=== PATIENT | female | born 1955 | race Caucasian/White ===

== ENCOUNTER 2017-01-29 12:53 | Emergency (ER) | payer BC ==
[2017-01-29] MEDS ORDERED: ALBUTEROL SO4 2.5/IPRATROPIUM 0.5 INH SOL 3 ML VIAL.NEB. NEB ONE ×2 (13:12→13:23)
[2017-01-29] MEDS ORDERED: FAMOTIDINE 20 MG TABLET PO ONE (13:12)
[2017-01-29] MEDS ORDERED: MAG HYDROX/AL HYDROX/SIMETH 355 ML ORAL.SUSP PO ONE (13:12)
[2017-01-29] MEDS ORDERED: LIDOCAINE VISCOUS 2% ORAL/TOP 20 ML UNIT-DOSE CUP MM ONE (13:13)
[2017-01-29] MEDS ORDERED: KETOROLAC TROMETHAMINE 30 MG/1 ML VIAL IM ONE (13:13)
[2017-01-29 13:14] VITALS: BP 113/77; PULSE 100; TEMP 98.9; BMI 31.5
[2017-01-29] MEDS ORDERED: PSEUDOEPHEDRINE HCL 30 MG TABLET PO ONE (13:15)
--- NOTE | 2017-01-29 13:21 | PDOC ---
History of Present Illness - General Chief Complaint: Headache Stated Complaint: HEADACHE AND COUGH History Source: Patient Exam Limitations: No Limitations - History of Present Illness Initial Comments: 01/29/17 13:15 7-year-old female with a history of reflux disease here today complaining of cough congestion facial pain and headache. Patient states she's had an upset stomach with burning epigastric pain since she ate some bad food 1 week ago. Denies any shortness of breath has had a dry nonproductive cough since yesterday in the past has been treated for recurrent bronchitis and has been followed by Dr. Lamar pulmonology has use inhalers in the past. No fevers chills mild nasal congestion. Headache is frontal and region and wraps around laterally. Took Ecotrin earlier today with minimal relief no known sick contacts no fevers chills no recent travel denies any urinary symptoms did have vomiting a few days ago but none today no other moderating factors. Takes Protonix daily Past History - Past Medical History Allergies/Adverse Reactions: Allergies Allergy/AdvReac Type Severity Reaction Status Date / Time No Known Allergies Allergy Verified 01/29/17 12:54 Home Medications: Ambulatory Orders Levothyroxine [Synthroid -] 88 mcg PO DAILY 12/07/13 Albuterol Sulfate Inhaler - [Ventolin HFA Inhaler -] 2 puff IH Q4H PRN #1 inhaler 01/29/17 Fluticasone Prop 0.05% Nasal [Flonase -] 1 spray NS DAILY #1 bot 01/29/17 Omeprazole Magnesium [Prilosec] 20 mg PO BID 01/29/17 Pseudoephedrine HCl 30 mg PO QID #15 tablet 01/29/17 COPD: No GI Disorders: Yes (LORD'S ESOPHAGUS) Thyroid Disease: Yes Other medical history: BRONCHITIS - Suicide/Smoking/Psychosocial Hx Smoking History: Never smoked Have you smoked in the past 12 months: No Information on smoking cessation initiated: No Hx Alcohol Use: No Drug/Substance Use Hx: No Substance Use Type: None Review of Systems - Review of Systems Constitutional: No: Chills, Diaphoresis, Fever HEENTM: No: Blurred Vision Respiratory: Yes: Cough, Wheezing. No: Orthopnea, Shortness of Breath, Productive cough Cardiac (ROS): No: Chest Pain ABD/GI: Yes: Nausea, Vomiting, Indigestion : No: Burning, Dysuria Musculoskeletal: No: Back Pain Integumentary: No: Bruising Neurological: Yes: Headache. No: Numbness, Paresthesia All Other Systems: Reviewed and Negative *Physical Exam - Vital Signs Last Vital Signs Temp Pulse Resp BP Pulse Ox 98.9 F 100 H 20 113/77 96 01/29/17 12:54 01/29/17 12:54 01/29/17 12:54 01/29/17 12:54 01/29/17 12:54 - Physical Exam General Appearance: Yes: Appropriately Dressed HEENT: positive: Normal ENT Inspection, Nasal Congestion, Rhinorrhea, Sinus Tenderness, Other (Bilateral nasal turbinate enlargement posterior pharynx cobblestoning) Neck: positive: Trachea midline Respiratory/Chest: positive: Normal Breath Sounds, Wheezing (end expiratory wheeze at base with cough). negative: Chest Tender Cardiovascular: positive: Regular Rhythm, Regular Rate, S1, S2 Gastrointestinal/Abdominal: positive: Normal Bowel Sounds, Flat, Soft. negative : Tender Musculoskeletal: positive: Normal Inspection. negative: CVA Tenderness Extremity: positive: Normal Capillary Refill, Normal Inspection, Normal Range of Motion Integumentary: positive: Normal Color, Dry, Warm Neurologic: positive: Fully Oriented, Alert, Normal Mood/Affect Heart Score/ECG Review #1 General ECG Interpretation: Sinus Rhythm, Normal Rate (97), Normal Intervals, No acute ischemic changes ED Treatment Course - RADIOLOGY Radiology Studies Ordered: Category Date Time Status CHEST PA & LAT [RAD] Stat Radiology 01/29/17 13:03 Ordered Medical Decision Making - Medical Decision Making 01/29/17 13:19 61-year-old female history of GERD here with likely viral URI and mild bronchospasm. Plan treat sinusitis with decongestants and Flonase. We will try a DuoNeb Daquan dilator to help with spastic cough chest x-ray to rule out pneumonia afebrile here in the emergency room sats are good we'll also treat patient's reflux symptoms with Pepcid Maalox and viscous lidocaine reassess for symptomatic improvement likely discharge home with outpatient follow-up PCP *DC/Admit/Observation/Transfer Diagnosis at time of Disposition: Viral syndrome, Sinusitis, Bronchitis - Discharge Dispostion Disposition: HOME Condition at time of disposition: Improved - Prescriptions Prescriptions: Albuterol Sulfate Inhaler - [Ventolin HFA Inhaler -] 2 puff IH Q4H PRN #1 inhaler PRN Reason: Cough Fluticasone Prop 0.05% Nasal [Flonase -] 1 spray NS DAILY #1 bot Pseudoephedrine HCl 30 mg PO QID #15 tablet - Referrals - Patient Instructions Printed Discharge Instructions: DI for Acute Bronchitis Additional Instructions: you should follow-up with your primary doctor next week. Use Flonase nasal spray 1 spray each nostril daily to help with nasal congestion and facial pressure. you can also use pseudoephedrine 30 mg every 6 hours as needed for nasal congestion. Use albuterol 2 puffs inhaled every 4 hours as needed for persistent cough or wheezing take Tylenol 500 mg every 6 hours as needed for headache or pain. Return for any worsening symptoms vomiting high fevers shortness of breath or any concerns - Post Discharge Activity
[2017-01-29] MEDS ORDERED: PSEUDOEPHEDRINE HCL 30 MG TABLET ONE (13:23)
[2017-01-29] MEDS ORDERED: MAG HYDROX/AL HYDROX/SIMETH 30 ML UNIT-DOSE CUP ONE (13:24)
[2017-01-29] MEDS ORDERED: FAMOTIDINE 20 MG TABLET ONE (13:24)
[2017-01-29] MEDS ORDERED: KETOROLAC TROMETHAMINE 30 MG/1 ML VIAL ONE (13:24)
[2017-01-29] MEDS ORDERED: LIDOCAINE VISCOUS 2% ORAL/TOP 20 ML UNIT-DOSE CUP ONE (13:25)
--- NOTE | 2017-01-30 15:18 | EKG ---
Test Reason : Blood Pressure : / mmHG Vent. Rate : 097 BPM Atrial Rate : 097 BPM P-R Int : 174 ms QRS Dur : 078 ms QT Int : 370 ms P-R-T Axes : 056 010 066 degrees QTc Int : 469 ms NORMAL SINUS RHYTHM POOR R WAVE PROGRESSION NONSPECIFIC T WAVE ABNORMALITY ABNORMAL ECG WHEN COMPARED WITH ECG OF 31-JUL-1999 09:30, Loss of R waves in V4 and decreased R wave in V5 Confirmed by CHULA GALICIA MD ([id number]) on 01/30/2017 3:18:14 PM Referred By: BENITO Confirmed By:CHULA GALICIA MD
== END 2017-01-29 15:00 | disposition home or self-care (01) ==
LOC: FER 12:53
PROC: 3E0F7GC Introduction of Other Therapeutic Substance into Respiratory Tract, Via Natural or Artificial Opening (ICD-10-PCS; principal; 2017-01-29)
PROC: 3E0333Z Introduction of Anti-inflammatory into Peripheral Vein, Percutaneous Approach (ICD-10-PCS; 2017-01-29)
DX: J40 Bronchitis, not specified as acute or chronic (principal); J01.90 Acute sinusitis, unspecified; B34.9 Viral infection, unspecified
CPT/HCPCS: 71020-TC; 93005; 99282-25

== ENCOUNTER 2018-08-22 12:18 | Emergency (ER) | payer BC, OTHER ==
[2018-08-22 12:27] VITALS: TEMP 99.1; BMI 32.8
[2018-08-22] MEDS ORDERED: ASPIRIN 325 MG TABLET PO ONE (13:14)
[2018-08-22] MEDS ORDERED: ASPIRIN 325 MG TABLET ONE (13:23)
[2018-08-22 13:40] LABS: BASO % 0.6 % (0-2.0); EOS % 2.1 % (0-4.5); HEMATOCRIT 40.1 % (32.4-45.2); HEMOGLOBIN 13.5 GM/dL (10.7-15.3); LYMPH % 27.3 % (8-40); MCH 29.7 pg (25.7-33.7); MCHC 33.8 g/dl (32.0-36.0); MEAN PLT VOLUME 9.1 fl (7.5-11.1); MONO % 9.1 % (3.8-10.2); NEUT % 60.9 % (42.8-82.8); PLATELET COUNT 212 K/MM3 (134-434); RBC 4.55 M/mm3 (3.60-5.2); RDW 13.7 % (11.6-15.6); WHITE BLOOD COUNT 4.2 K/mm3 (4.0-10.0)
--- NOTE | 2018-08-22 13:46 | PDOC ---
Documentation entered by Aaron Nuñez SCRIBE, acting as scribe for Hector Carlson MD. Hector Carlson MD: This documentation has been prepared by the Savannah pedraza Elijah, SCRIBE, under my direction and personally reviewed by me in its entirety. I confirm that the documentation accurately reflects all work, treatment, procedures, and medical decision making performed by me. History of Present Illness - General Chief Complaint: Chest Pain Stated Complaint: CHEST PAIN Time Seen by Provider: 08/22/18 12:45 - History of Present Illness Initial Comments: 08/22/18 13:34 62 F with GERD, presenting to ED with intermittent chest pain since this morning. Pt reports 3-4 episodes of sharp midsternal chest pain. She states that the pain lasted only a few seconds at a time. No radiation of pain anywhere. Pain is not exertional, not pleuritic. NO associated SOB/N/V. No abdominal pain. No cough. No fevers. Past History - Past Medical History Allergies/Adverse Reactions: Allergies Allergy/AdvReac Type Severity Reaction Status Date / Time suture Allergy Verified 08/22/18 12:24 Home Medications: Ambulatory Orders Levothyroxine [Synthroid -] 88 mcg PO DAILY 12/07/13 COPD: No GI Disorders: Yes (LORD'S ESOPHAGUS) Thyroid Disease: Yes - Suicide/Smoking/Psychosocial Hx Smoking History: Never smoked Have you smoked in the past 12 months: No Hx Alcohol Use: No Drug/Substance Use Hx: No Substance Use Type: None Review of Systems - Review of Systems Comments:: 08/22/18 13:39 "GENERAL/CONSTITUTIONAL: No fever or chills. No weakness. HEAD, EYES, EARS, NOSE AND THROAT: No change in vision. No ear pain or discharge. No sore throat. CARDIOVASCULAR: + chest pain, no shortness of breath, no loss of consciousness RESPIRATORY: No cough, wheezing, or hemoptysis. GASTROINTESTINAL: No nausea, vomiting, diarrhea or constipation. GENITOURINARY: No dysuria, frequency, or change in urination. MUSCULOSKELETAL: No joint or muscle swelling or pain. No neck or back pain. SKIN: No rash NEUROLOGIC: No vertigo, no change in strength/sensation. ENDOCRINE: No increased thirst. No abnormal weight change. HEMATOLOGIC/LYMPHATIC: No anemia, easy bleeding, or history of blood clots. ALLERGIC/IMMUNOLOGIC: No hives or skin allergy. *Physical Exam - Vital Signs Last Vital Signs Temp Pulse Resp BP Pulse Ox 99.1 F 111 H 18 127/91 98 08/22/18 12:26 08/22/18 12:26 08/22/18 12:26 08/22/18 12:26 08/22/18 12:26 - Physical Exam Comments: 08/22/18 13:39 "GENERAL: Awake, alert, and fully oriented, in no acute distress. HEAD: No signs of trauma EYES: PERRLA, EOMI, sclera anicteric, conjunctiva clear ENT: Auricles normal inspection, hearing grossly normal, nares patent, oropharynx clear without exudates. Moist mucosa NECK: Nontender, no stepoffs, Normal ROM, supple, no lymphadenopathy, JVD, or masses LUNGS: Breath sounds equal, clear to auscultation bilaterally. No wheezes, and no crackles HEART: Regular rate and rhythm, normal S1 and S2, no murmurs, rubs or gallops ABDOMEN: Soft, nontender, normoactive bowel sounds. No guarding, no rebound. No masses EXTREMITIES: Normal range of motion, no edema. No clubbing or cyanosis. No cords, erythema, or tenderness NEUROLOGICAL: Cranial nerves II through XII intact. 5/5 strength and sensation in all extremities, Normal speech, normal gait, normal cerebellar function SKIN: Warm, Dry, normal turgor, no rashes or lesions noted. Heart Score/ECG Review - History History: Slightly suspicious - Electrocardiogram EKG: Non specific repolarization disturbance - Age Age: 45-65 - Risk Factors Risk Factors Heart Score: Yes Positive family hx of cardiac disease Based on the list above the patient has:: 1-2 risk factors - Troponin Troponin: </= normal limit - Score Heart Score - Total: 3 - ECG Impressions Comment:: 08/22/18 13:42 NSR, no MAUREEN/STDs, TWI in I and aVL, LBBB not seen on prior EKG ED Treatment Course - LABORATORY CBC & Chemistry Diagram: 08/22/18 13:19 08/22/18 13:19 - RADIOLOGY Radiology Studies Ordered: Category Date Time Status CHEST X-RAY PORTABLE* [RAD] Stat Radiology 08/22/18 13:14 Ordered - Medications Given in the ED: ED Medications Discontinued Medications Generic Name Dose Route Start Last Admin Trade Name Antonia PRN Reason Stop Dose Admin Aspirin 325 mg 08/22/18 13:14 08/22/18 13:30 Asa - PO 08/22/18 13:15 325 mg ONCE ONE Administration Medical Decision Making - Medical Decision Making 08/22/18 13:44 62 F with intermittent chest pain since this morning. EKG today shows LBBB NOT seen on prior EKG in February. Pt has family history of WI but no other significant risk factors. Pt with no PE risk factors but is tachycardic in ED. Will r/o PE with ddimer. - Labs, serial trops, ddimer - CXR - Cards c/s 08/22/18 15:37 Dimer slightly elevated Trop negative x1 Labs otherwise normal Pt seen by Dr. Ba, who recommends 2nd troponin. if negative, can be DC'ed home from cards standpoint. Dispo pending CTA and repeat trop 08/22/18 16:56 CTA negative for PE 2nd trop sent 08/22/18 17:28 Trop negative x2 Pt is well appearing, with normal vitals. Clinically stable for DC at this time. I discussed the physical exam findings, ancillary test results and final diagnoses with the patient. I answered all of the patient's questions. The patient was satisfied with the care received and felt comfortable with the discharge plan and treatment plan. The patient agrees to follow up with the primary care physician within 24-72 hours. *DC/Admit/Observation/Transfer Diagnosis at time of Disposition: Chest pain - Discharge Dispostion Disposition: HOME - Referrals Referrals: Juan Medina MD [Primary Care Provider] - Lalo Ba MD [Staff Physician] - - Patient Instructions Printed Discharge Instructions: DI for Atypical Chest Pain Additional Instructions: Your bloodwork and imaging did not show any abnormalities requiring immediate intervention today. 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 Call the number provided to make an appointment with Dr. Ba within 1 week. If you experience recurrent chest pain, shortness of breath, palpitations, or any other concerning symptoms, return to the ER immediately. - Post Discharge Activity - Attestations Physician Attestion: 08/22/18 16:58 I, Dr. Hetcor Carlson MD, attest that this document has been prepared under my direction and personally reviewed by me in its entirety. I further attest, that it accurately reflects all work, treatment, procedures and medical decision -making performed by me.
[2018-08-22 14:09] LABS: INR 0.96 (0.83-1.09); PROTHROMBIN TIME (PATIENT) 11.3 SEC (9.7-13.0)
[2018-08-22 14:11] LABS: ALBUMIN 3.8 g/dl (3.4-5.0); ALK PHOS 81 U/L (45-117); ANION GAP 7 MMOL/L (8-16); BILIRUBIN,TOTAL 0.8 mg/dL (0.2-1); BLOOD UREA NITROGEN 14.4 mg/dL (7-18); CALCIUM 8.8 mg/dL (8.5-10.1); CHLORIDE 110 mmol/L (98-107); CO2 26 mmol/L (21-32); CREATININE 0.8 mg/dL (0.55-1.3); GLUCOSE,RANDOM 99 mg/dL (74-106); LIPASE 94 U/L (73-393); N-TERMINAL BNP 100.2 pg/ml (5-125); POTASSIUM 4.1 mmol/L (3.5-5.1); SGOT/AST 18 U/L (15-37); SGPT/ALT 25 U/L (13-61); SODIUM 144 mmol/L (136-145); TOT PROT 7.2 g/dl (6.4-8.2)
--- NOTE | 2018-08-22 14:50 | EKG ---
Test Reason : Blood Pressure : / mmHG Vent. Rate : 111 BPM Atrial Rate : 111 BPM P-R Int : 176 ms QRS Dur : 126 ms QT Int : 366 ms P-R-T Axes : 067 -38 092 degrees QTc Int : 497 ms SINUS TACHYCARDIA LEFT AXIS DEVIATION LEFT BUNDLE BRANCH BLOCK ABNORMAL ECG WHEN COMPARED WITH ECG OF 29-JAN-2017 14:28, LEFT BUNDLE BRANCH BLOCK IS NOW PRESENT BORDERLINE CRITERIA FOR ANTERIOR INFARCT ARE NO LONGER PRESENT Confirmed by GRETA BURNS, DENA ([id number]) on 08/22/2018 2:49:33 PM Referred By: Confirmed By:DENA HERNANDES MD
--- NOTE | 2018-08-22 15:27 | CON.CARD ---
Cardiology Consult (text) - Consultation Consultation Note: cc: abnl ecg, cp hpi: 62 f hx gerd here with abnl ecg, cp. No hx hrt dz (vasovagal syncope 10+ years ago, unremarkable cardiac w/u then per pt). This AM while at office she noticed sharp pain in right chest, one small spot. Lasted only a second. Later this same symptom happened two more times, and resolved in a few seconds each time. No sob, palps, dizzy loc pnd orthopnea le edema. PMD at office did ecg showing lbbb, new from 02/2018 ecg, so sent to ER. No more cp, pt feels fine now. pmh: per hpi psh: nc social: no tob fam: no premature cad, scd ros: per hpi; all others normal meds: Home Medications Medication Instructions Recorded Levothyroxine [Synthroid -] 88 mcg PO DAILY 12/07/13 pe: Vital Signs Period Temp Pulse Resp BP Sys/Garcia Pulse Ox Last 24 Hr 99.1 F 90-111 18-18 127-152/79-93 97-98 nad no jvd rrr s1s2 no mrg cta bl nl eff aao3 no le e/c/c abd nt nd pos bs no jaundice diaphoresis pos dp pt Laboratory Last Values WBC 4.2 K/mm3 (4.0-10.0) 08/22/18 13:19 RBC 4.55 M/mm3 (3.60-5.2) 08/22/18 13:19 Hgb 13.5 GM/dL (10.7-15.3) 08/22/18 13:19 Hct 40.1 % (32.4-45.2) 08/22/18 13:19 MCV 88.0 fl (80-96) 08/22/18 13:19 MCH 29.7 pg (25.7-33.7) 08/22/18 13:19 MCHC 33.8 g/dl (32.0-36.0) 08/22/18 13:19 RDW 13.7 % (11.6-15.6) 08/22/18 13:19 Plt Count 212 K/MM3 (134-434) 08/22/18 13:19 MPV 9.1 fl (7.5-11.1) 08/22/18 13:19 Absolute Neuts (auto) 2.5 K/mm3 (1.5-8.0) 08/22/18 13:19 Neutrophils % 60.9 % (42.8-82.8) 08/22/18 13:19 Lymphocytes % 27.3 % (8-40) 08/22/18 13:19 Monocytes % 9.1 % (3.8-10.2) 08/22/18 13:19 Eosinophils % 2.1 % (0-4.5) 08/22/18 13:19 Basophils % 0.6 % (0-2.0) 08/22/18 13:19 Nucleated RBC % 0 % (0-0) 08/22/18 13:19 PT with INR 11.30 SEC (9.7-13.0) 08/22/18 13:19 INR 0.96 (0.83-1.09) 08/22/18 13:19 PTT (Actin FS) 37.2 SECONDS (25.2-36.5) H 08/22/18 13:19 D-Dimer 627 ng/ml (0-500) H 08/22/18 13:30 Sodium 144 mmol/L (136-145) 08/22/18 13:19 Potassium 4.1 mmol/L (3.5-5.1) 08/22/18 13:19 Chloride 110 mmol/L (98-107) H 08/22/18 13:19 Carbon Dioxide 26 mmol/L (21-32) 08/22/18 13:19 Anion Gap 7 MMOL/L (8-16) L 08/22/18 13:19 BUN 14.4 mg/dL (7-18) 08/22/18 13:19 Creatinine 0.8 mg/dL (0.55-1.3) 08/22/18 13:19 Est GFR (CKD-EPI)AfAm 92.22 08/22/18 13:19 Est GFR (CKD-EPI)NonAf 79.57 08/22/18 13:19 Random Glucose 99 mg/dL (74-106) 08/22/18 13:19 Calcium 8.8 mg/dL (8.5-10.1) 08/22/18 13:19 Total Bilirubin 0.8 mg/dL (0.2-1) 08/22/18 13:19 AST 18 U/L (15-37) 08/22/18 13:19 ALT 25 U/L (13-61) 08/22/18 13:19 Alkaline Phosphatase 81 U/L (45-117) 08/22/18 13:19 Creatine Kinase 89 U/L (26-192) 08/22/18 13:19 Troponin I < 0.02 ng/ml (0.00-0.05) 08/22/18 13:19 B-Natriuretic Peptide 100.2 pg/ml (5-125) 08/22/18 13:19 Total Protein 7.2 g/dl (6.4-8.2) 08/22/18 13:19 Albumin 3.8 g/dl (3.4-5.0) 08/22/18 13:19 Lipase 94 U/L (73-393) 08/22/18 13:19 ecg: sinus tachy, nl pr, lbbb cxr: clear lungs a/p: 62 f hx gerd here with abnl ecg, cp. cp, abnl ecg: -atypical cp that seems MSK based on description -ecg today showing LBBB which is new from ecg from 02/2018 -does not appear to be acs, first set of CE's negative -ecg seems to represent rate related LBBB and not acute acs -would check one more set of CE's and if remains normal can dc from cardiac pov with plans for outpt cardio f/u and testing.
[2018-08-22] MEDS ORDERED: SODIUM CHLORIDE 1,000 ML IV STA (15:36)
[2018-08-22 17:36] VITALS: BP 129/76; PULSE 80
== END 2018-08-22 17:36 | disposition home or self-care (01) ==
LOC: JER 12:18 → SUPCPDRO 12:18 → JER 17:36
PROC: 3E0337Z Introduction of Electrolytic and Water Balance Substance into Peripheral Vein, Percutaneous Approach (ICD-10-PCS; principal; 2018-08-22)
DX: R07.9 Chest pain, unspecified (principal)
CPT/HCPCS: 36415; 71045-TC-FY; 71275-TC; 80053; 82550; 83690; 83880; 84484; 85025; 85379; 85610; 85730; 93005; 93010; 99284-25; J7030